=== PATIENT | male | born 1950 | race Caucasian/White ===

== ENCOUNTER 2017-05-09 07:41 | Emergency (ER) | payer MEDICARE, BC ==
[~2017-05-09] VITALS: Ht 177.8 cm; Wt 90.3 kg
[~2017-05-09 07:41] MED LIST: Artificials Tea30 ML; BUPR150ERA PO; CELE100 PO; GLIM4 PO; LEVO-T175 MCG PO; LOSA50 PO; Omeprazole20 M1 PO; SIMV40 PO; SITA100T2 PO; TRAZ50 PO; VENL75ER PO
== END 2017-05-09 09:13 | disposition home or self-care (01) ==
LOC: ER 07:41
DX: S70.02XA Contusion of left hip, initial encounter (principal); I10 Essential (primary) hypertension; E11.9 Type 2 diabetes mellitus without complications; Z88.5 Allergy status to narcotic agent; Z79.899 Other long term (current) drug therapy; Z87.891 Personal history of nicotine dependence; W01.0XXA Fall on same level from slipping, tripping and stumbling without subsequent striking against object, initial encounter
CPT/HCPCS: 73502; 99283

== ENCOUNTER 2018-09-23 11:31 | Observation (INO) | payer MEDICARE, BC ==
[~2018-09-23] VITALS: Ht 177.8 cm; Wt 97.6 kg
[~2018-09-23 11:31] MED LIST changes: -LOSA50 PO; +LOSARTAN POTAS100 MG PO
[2018-09-23] MEDS ORDERED: SITA100T2 PO (11:57)
[2018-09-23 12:10] LABS: BASOPHILS ABSOLUTE AUTO 0.06 K/mm3 (0.00-0.23); BASOPHILS PERCENT AUTO 1 % (0-2); EOSINOPHILS PERCENT AUTO 2 % (0-6); Hematocrit 42.9 % (37.0-53.0); Hemoglobin 14.5 g/dL (13.5-17.5); IMMATURE GRAN ABSOLUTE AUTO 0.05 K/mm3 (0.00-0.10); IMMATURE GRAN PERCENT AUTO 1 % (0-1); LYMPHOCYTES PERCENT AUTO 19 % (21-46); MONOCYTES ABSOLUTE AUTO 0.93 K/mm3 (0.16-1.47); MONOCYTES PERCENT AUTO 10 % (4-13); Mean Corpuscular HGB Conc 33.8 g/dL (31.5-36.5); Mean Corpuscular Volume 89 fL (80-100); Mean Platelet Volume 9.3 fL (9.1-12.4); NEUTROPHILS ABSOLUTE AUTO 6.05 K/mm3 (1.96-9.15); NEUTROPHILS PERCENT AUTO 67 % (41-73); Platelet Count 189 K/mm3 (150-400); RDW Coefficient Variation 12.8 % (11.7-14.2); RDW Standard Deviation 41.9 fL (35.1-46.3); Red Blood Cell Count 4.83 M/mm3 (4.30-5.90); White Blood Cell Count 8.99 K/mm3 (4.00-11.30)
[2018-09-23 12:25] LABS: Alanine Aminotransfer (ALT/SGP 54 U/L (12-78); Albumin, Blood 3.6 g/dL (3.4-5.0); Alk Phos 74 U/L (50-136); Anion Gap 10 mmol/L (6-16); Aspartate Aminotrans (AST/SGOT 45 U/L (12-37); Bilirubin, Total 0.4 mg/dL (0.1-1.0); Blood Urea Nitrogen 16 mg/dL (8-24); Bun/Creatinine Ratio 14.7 (12.0-20.0); CO2, Blood 22 mmol/L (21-32); Calcium, Blood 8.4 mg/dL (8.5-10.1); Chloride, Blood 106 mmol/L (98-108); Creatinine, Blood 1.09 mg/dL (0.60-1.20); Globulin, Blood 3.6 g/dL (2.2-4.0); Glomerular Filtration Rate >60 (60-); Glucose, Blood 261 mg/dL (70-99); Potassium, Blood 4.5 mmol/L (3.5-5.5); Sodium, Blood 138 mmol/L (136-145); Total Protein, Blood 7.2 g/dL (6.4-8.2)
[2018-09-23 13:19] LABS: International Normalized Ratio 0.97; Prothrombin Time Results 10.3 Sec (9.7-11.5)
--- NOTE | 2018-09-23 16:41 | NUR ---
Echocardiogram completed.
[2018-09-23] MEDS ORDERED: LO-DOSE ASPIRIN81 MG PO (16:56)
--- NOTE | 2018-09-23 17:40 | NUR ---
ADMIT NOTE- PT ADMITTED THROUGH THE ED. PER REPORT FROM ED RN AR HAS SOB, LABS WNL D-DIMER ELEVATED TROP ELEVATED, PT HAS DYSPNEA ON EXERTION. PT HAS ALLERGY TO MORPHINE AND OTHER OPIATES, CAN NOT TAKE THEM.
--- NOTE | 2018-09-23 18:42 | NUR ---
Telephone report from Heather Orourke at this time; anticipate arrival of pt to PCU 12 shortly.. Per report, the pt was given 1 ntg sublinguially, but is still having some chest pressure at rest, albeit some relief with the NTG.
--- NOTE | 2018-09-23 19:30 | NUR ---
The pt arrived from medical floor, looking cheerful and relaxed, on 1 l/min of oxygen via nasal cannula, stating that his chest was feeling pressure which he rated at 1/10. Vital signs taken, and the pt shortly after EKG stated that his chest pressure was increased to 3/10. He was given 1 sublingual nitroglycerin. He states that sitting up and taking deep breaths (for assessment of lung sounds) increased his chest pressure as well. spo2 continuous is 97% on 2 l/min of oxygen. States he does not use oxygen normally at home, only a cpap for MARCY. Bedside report was given to Anisha Bill RN.
--- NOTE | 2018-09-23 19:44 | NUR ---
CALLED DR HUSTON- AFTER SPEAKING TO THE PT HE STATED THE SOB WAS CAUSED BY PRESSURE IN HIS CHEST, THE PRESSURE IS PAINFUL, SQUEEZING THE AIR OUT OF HIM (PER PT). PT WAS ABLE TO RATE THE PAIN THE PRESSURE WAS CAUSING AT A 3/10 AND IT INCREASED WITH EXERTION TO 6/10 LOOKED MORE LIKE 8/10. PT MEDICATED WITH NITRO AND PRESSURE REDUCED SO PT COULD TAKE A DEEP BREATH WITHOUT IT FEELING FORCED. PT PLACED ON 2L O2 VIA NC. SPOKE TO SPOUSE, PT USES A HOME CPAP, GOT ORDER IN CHART FROM DR HUSTON.
--- NOTE | 2018-09-23 19:47 | NUR ---
TRANSFER NOTE- WITH PT CHEST PAIN RELIEVED WITH NITRO, ELEVATED TROP AND ELEVATED D-DIMER, HEPARIN DRIP WAS ORDERED WELL TRANSFER TO PCU. GAVE REPORT TO BACILIO DAVIS IN PCU. PT TRANSFERED TO [facility]. SPOUSE AWARE OF THE TRANSFER BUT LEFT BEFORE THE BED WAS ASSIGNED.
--- NOTE | 2018-09-23 21:22 | NUR ---
PCU NOC SHIFT - ASSUMED CARE PATIENT ARRIVED TO UNIT FROM MEDICAL FLOOR - REPORT ANGINA THAT IS PAINFUL WITH DEEP BREATHS AND PRESENTS A CONSTANT PRESSURE WITH PAIN RATING 1-3/10 - RELIEVED WITH RELAXING AND NITRO. VSS. PATIENT REMAINS IN SINUS ASHLI HEART RATE 46-52. PATIENT REPORTS THAT AFTER NITRO HE FEELS BETTER AND IS CONTENT TO RELAX IN BED WITHOUT FURTHER INTERVENTION AT THIS TIME. PATIENT REMAINS ON THE HEART MONITOR. EKG OBTAIN WHEN HE ARRIVED TO PCU. HEPARIN GTT STARTED. CARDIAC CONSULT IN PLACE AND PATIENT WILL BE KEPT NPO AFTER MIDNIGHT FOR POSSIBLE ANGIOGRAM IN AM. NO ACUTE EVENTS NOTED AT THIS TIME, PATIENT DENIES NEEDS. CALL LIGHT W/I REACH. WILL CONTINUE TO MONITOR.
--- NOTE | 2018-09-23 22:19 | NUR ---
PATIENT REPORTS CHEST PRESSURE/PAIN STATES, "IT FEELS LIKE A LARGE BOOK IS SETTING ON MY CHEST". CHECK PATIENT B/P BEFORE AND AFTER - NITRO GIVEN. PATIENT REPORTED RELIEF FROM 3/10 CHEST PAIN DOWN TO 0/10 CHEST PAIN/PRESSURE.
--- NOTE | 2018-09-24 04:00 | NUR ---
CHEST PAIN/PRESSURE RELIEVED WITH NITRO FROM 3/10 TO 0/10. PATIENT NOTED TO BE DIAPHORETIC/CLAMMY.
--- NOTE | 2018-09-24 05:50 | NUR ---
PCU NOC SHIFT SUMMARY PATIENT REMAINS ALERT AND ORIENTED X4 T/O SHIFT. CHEST PAIN REPORTS T/O SHIFT AND RELIEVED WITH NITRO. PATIENT KEPT NPO EXCEPT AM MEDICATIONS - SEE EMAR. PROVIDER STEFANO NOTIFIED OF CP RELIEVED WITH NITRO. AM EKG COMPLETED. PATIENT DENIES ANY NEEDS AT THIS TIME. RESPIRATIONS E/U ON ROOM AIR. WILL CONTINUE TO MONITOR AND GIVE REPORT TO DAYSHIFT RN.
--- NOTE | 2018-09-24 07:21 | NUR ---
The pt is lying in bed, non-distressed, calm, and pleasantly conversant. is at the bedside. He states that he is having very mild pressure ongoing in his chest, which has been relieved with NTG sublinguially during the night, with relief lasting about 1-2 hours after the administration. Heparin drip is infusing at 13 u/kg/hour, 21.6 cc/hour at this time. Lab here to draw troponin and PTT at this time.
[2018-09-24 08:11] LABS: Alanine Aminotransfer (ALT/SGP 49 U/L (12-78); Albumin, Blood 3.4 g/dL (3.4-5.0); Alk Phos 67 U/L (50-136); Anion Gap 8 mmol/L (6-16); Aspartate Aminotrans (AST/SGOT 37 U/L (12-37); Bilirubin, Total 0.5 mg/dL (0.1-1.0); Blood Urea Nitrogen 18 mg/dL (8-24); Bun/Creatinine Ratio 15.9 (12.0-20.0); CHOL/HDL RATIO 3.6; CO2, Blood 25 mmol/L (21-32); Chloride, Blood 106 mmol/L (98-108); Cholesterol 143 mg/dL (50-200); Creatinine, Blood 1.13 mg/dL (0.60-1.20); Globulin, Blood 3.3 g/dL (2.2-4.0); Glomerular Filtration Rate >60 (60-); Glucose, Blood 193 mg/dL (70-99); HDL Cholesterol 40 mg/dL (>39); LDL/HDL RATIO 1.4; Low Density Lipoprotein Chol 55 mg/dL (0-110); Potassium, Blood 4.2 mmol/L (3.5-5.5); Sodium, Blood 139 mmol/L (136-145); Total Protein, Blood 6.7 g/dL (6.4-8.2); Triglycerides 239 mg/dL (30-160); Very Low Density Lipoprot Chol 47 mg/dL (6-32)
--- NOTE | 2018-09-24 14:25 | NUR ---
The pt was brought back to PCU 12 from the [facility] by Tori Andrea, charge gang weigher, and Maryam Farrell, NIMESH. He is awake, alert, oriented, and cooperative. Asking questions about activity restrictions on his right wrist, and also what he is going to have to do going forward regarding the stents. Pt education done regarding immediate care and activity restrictions of the right wrist post arterial access, and for the next 2-3 days. It was also very strongly emphasized the importance of taking aspirin and plavix WITHOUT FAIL daily and following up with his PCP and soft metals engraver hand going forward.
--- NOTE | 2018-09-24 15:12 | NUR ---
recovery. The pt ambulated with standby assistance to the bathroom . Denied dizzyness, pain, lightheadedness. Was able to eat some soup and crackers. Oral fluid intake was strongly encouraged. He has no nausea, no pain. Right radial arterial access site remains WNL. TR band is in place, and vital signs have been stable.
--- NOTE | 2018-09-24 16:10 | NUR ---
2 cc air removed from TR BAND. Site remains completely WNL. The pt is cheerful, very talkative, and states that he does not have any more chest discomfort at rest, nor with activity. Dr. Edwards here to see the patient; states that from his standpoint the pt can be discharged home today.
--- NOTE | 2018-09-24 17:03 | NUR ---
ADDITIONAL 2 CC REMOVED FROM TR BAND. NO COMPLICATIONS. PT IS AMBULATORY TO BATHROOM WITH ASSISTING. DENIES ANY SYMPTOMS.
--- NOTE | 2018-09-24 17:38 | NUR ---
ADDITIONAL 2 CC AIR REMOVED. NO COMPLICATIONS. SCANT AMOUNT OF DRIED BLOOD NOTED, PRESUMABLY FROM PRIOR REMOVAL AND PT'S ACTIVITY OF GOING TO THE BATHROOM.
--- NOTE | 2018-09-24 18:18 | NUR ---
Call to Dr. Edwards regarding elevated blood pressure. New orders were received for amlodipine to start today and to continue tomorrow and on discharge.
--- NOTE | 2018-09-24 23:21 | NUR ---
START OF SHIFT: REPORT FROM SUSAN RIBERA. PT WAS UP IN ROOM USING RESTROOM. PT A+O, VSS. RIGHT RADIAL ACCESS SITE WITH TR BAND COMPLETELY DEFLATED AND ARM BOARD IN PLACE. TR BAND WITH SCANT AMOUNT OF OLDER DRAINAGE NOTED. WILL KEEP TR BAND AND WRIST BOARD IN PLACE T/O NOC SINCE PT GETTING UP OUT OF BED AND UP IN ROOM INDEPENDENTLY. PT WITH VERBAL UNDERSTANDING LIMITATION USING RIGHT HAND. WILL CONTINUE TO MONITOR.
--- NOTE | 2018-09-25 07:46 | NUR ---
RECEIVED REPORT AND ASSUMED CARE OF PATIENT. HE IS SITTING UP IN BED WITH BESIDE HIM, THEY ARE ANXIOUS TO DISCHARGE AND GO HOME. PLEASANT AFFECT, ABLE TO APPROPRIATELY EXPRESS NEEDS AT THIS TIME. WILL MONITOR AND PREPARE PT FOR DISCHARGE.
[2018-09-25] MEDS ORDERED: CLOP75 PO (09:33)
[2018-09-25] MEDS ORDERED: ATOR40TA PO (09:50)
--- NOTE | 2018-09-25 10:45 | NUR ---
D/C EDUCATION: COMPLETED EDUCATION FOR NEW MEDICATION PLAVIX, WENT OVER CONTRACT FOR PLAVIX AND TR BAND DISCHARGE INFORMATION SHEET. PT AND UNDERSTOOD INSTRUCTION, ASKED QUESTIONS AND INTERACTED TO DEMONSTRATED UNDERSTANDING. WRITTEN MATERIALS PROVIDED. PT DISCHARGED HOME.
== END 2018-09-25 10:41 | disposition home or self-care (01) ==
LOC: ER 11:31 → MEDS 11:32 → PCU 17:00
PROVIDERS: Emergency Medicine; Internal Medicine; ADMIT Family Medicine
DX: I25.10 Atherosclerotic heart disease of native coronary artery without angina pectoris (principal); E11.9 Type 2 diabetes mellitus without complications; I10 Essential (primary) hypertension; G47.33 Obstructive sleep apnea (adult) (pediatric); E03.9 Hypothyroidism, unspecified; E78.5 Hyperlipidemia, unspecified; Z87.891 Personal history of nicotine dependence; Z88.5 Allergy status to narcotic agent; Z79.899 Other long term (current) drug therapy; R77.8 Other specified abnormalities of plasma proteins
CPT/HCPCS: 36415; 71046; 71260; 80053; 80061; 82947; 83036; 83880; 84484; 85025; 85347; 85379; 85610; 85730; 93005; 93010; 93306; 93454; 94762; 96372; 96374; 96376; 99152; 99153; 99285-25; A9270; C1725; C1769; C1874; C1887; C1894; C9600; C9601; G0378; J0461; J1644; J1650; J2250; J3010; J7030; Q9967

== ENCOUNTER 2019-02-21 13:10 | Inpatient (IN) | payer MEDICARE, BC ==
[~2019-02-21] VITALS: Ht 177.8 cm; Wt 86.5 kg
[~2019-02-21 13:10] MED LIST changes: +ATOR40TA PO; +CLOP75 PO; +LO-DOSE ASPIRIN81 MG PO
[2019-02-21] MEDS ORDERED: VENL37.5ER PO (13:36)
[2019-02-21] MEDS ORDERED: EUTHYROX150 MCG PO (13:36)
[2019-02-21] MEDS ORDERED: LOSARTAN POTAS100 MG PO (13:36)
[2019-02-21] MEDS ORDERED: OMEPRAZOLE20 M1 PO (13:37)
[2019-02-21] MEDS ORDERED: Aspir 8181 MG PO (13:37)
[2019-02-21] MEDS ORDERED: CLOP75 PO (13:37)
[2019-02-21] MEDS ORDERED: ATOR80 PO (13:37)
[2019-02-21] MEDS ORDERED: TOUJEO MAX300 UNIT/1 SC (13:38)
[2019-02-21 13:44] LABS: BASOPHILS ABSOLUTE AUTO 0.04 K/mm3 (0.00-0.23); BASOPHILS PERCENT AUTO 1 % (0-2); EOSINOPHILS ABSOLUTE AUTO 0.14 K/mm3 (0.00-0.68); EOSINOPHILS PERCENT AUTO 2 % (0-6); Hematocrit 44.4 % (37.0-53.0); Hemoglobin 14.6 g/dL (13.5-17.5); IMMATURE GRAN ABSOLUTE AUTO 0.01 K/mm3 (0.00-0.10); IMMATURE GRAN PERCENT AUTO 0 % (0-1); LYMPHOCYTES ABSOLUTE AUTO 1.95 K/mm3 (0.84-5.20); LYMPHOCYTES PERCENT AUTO 29 % (21-46); MONOCYTES ABSOLUTE AUTO 0.86 K/mm3 (0.16-1.47); MONOCYTES PERCENT AUTO 13 % (4-13); Mean Corpuscular HGB 28.9 pg (26.0-34.0); Mean Corpuscular HGB Conc 32.9 g/dL (31.5-36.5); Mean Corpuscular Volume 88 fL (80-100); Mean Platelet Volume 8.8 fL (9.1-12.4); NEUTROPHILS ABSOLUTE AUTO 3.67 K/mm3 (1.96-9.15); NEUTROPHILS PERCENT AUTO 55 % (41-73); Platelet Count 179 K/mm3 (150-400); RDW Coefficient Variation 12.7 % (11.7-14.2); RDW Standard Deviation 40.4 fL (35.1-46.3); Red Blood Cell Count 5.06 M/mm3 (4.30-5.90); White Blood Cell Count 6.67 K/mm3 (4.00-11.30)
[2019-02-21 14:05] LABS: Alanine Aminotransfer (ALT/SGP 44 U/L (12-78); Albumin, Blood 3.6 g/dL (3.4-5.0); Albumin/Globulin Ratio 0.9 (0.8-1.8); Alk Phos 103 U/L (50-136); Anion Gap 7 mmol/L (6-16); Aspartate Aminotrans (AST/SGOT 29 U/L (12-37); Bilirubin, Total 0.5 mg/dL (0.1-1.0); Blood Urea Nitrogen 23 mg/dL (8-24); Bun/Creatinine Ratio 18.9 (12.0-20.0); CO2, Blood 24 mmol/L (21-32); Calcium, Blood 9.1 mg/dL (8.5-10.1); Chloride, Blood 108 mmol/L (98-108); Creatinine, Blood 1.22 mg/dL (0.60-1.20); Globulin, Blood 3.8 g/dL (2.2-4.0); Glomerular Filtration Rate >60 (60-); Glucose, Blood 95 mg/dL (70-99); Potassium, Blood 4.4 mmol/L (3.5-5.5); Sodium, Blood 139 mmol/L (136-145); Total Protein, Blood 7.4 g/dL (6.4-8.2); Troponin I <0.015 ng/mL (0.000-0.040)
--- NOTE | 2019-02-22 03:03 | NUR ---
SHIFT SUMMARY:\ PATIENT ARRIVED TO PCU 14 AT APPROX 1940 VIA GURNEY FROM ER. PATIENT AT BEDSIDE, PATIENT ABLE TO PIVOT TRANSFER TO BED WITH MINIMAL ASSIST. PATIENT C/O SOME DIZZY SENSATION. PATIENT ADMISSION COMPELTED AND PAIENT ORIENTED TO ROOM, CALL LIGHT AND HOSPITAL POLICIES. PATIENT SKIN IS C/D/I, PATIENT ALERT AND STATES CHEST PRESSURE IS VERY MILD AND HAS NOT WORSENED. PATIENT IS BRADYCARDIC WITH HR RANGING FROM 32 TO 50, MD AWARE. ALL OTHER VSS, CALL LIGHT WITHIN REACH, BED LOW AND LOCKED AND PATIENT VERY COMPLIANT WITH CARE.
[2019-02-22 05:32] LABS: BASOPHILS ABSOLUTE AUTO 0.06 K/mm3 (0.00-0.23); BASOPHILS PERCENT AUTO 1 % (0-2); EOSINOPHILS ABSOLUTE AUTO 0.14 K/mm3 (0.00-0.68); EOSINOPHILS PERCENT AUTO 2 % (0-6); Hematocrit 40.7 % (37.0-53.0); Hemoglobin 13.4 g/dL (13.5-17.5); IMMATURE GRAN ABSOLUTE AUTO 0.01 K/mm3 (0.00-0.10); IMMATURE GRAN PERCENT AUTO 0 % (0-1); LYMPHOCYTES ABSOLUTE AUTO 2.04 K/mm3 (0.84-5.20); LYMPHOCYTES PERCENT AUTO 34 % (21-46); MONOCYTES ABSOLUTE AUTO 0.83 K/mm3 (0.16-1.47); MONOCYTES PERCENT AUTO 14 % (4-13); Mean Corpuscular HGB 29.3 pg (26.0-34.0); Mean Corpuscular HGB Conc 32.9 g/dL (31.5-36.5); Mean Corpuscular Volume 89 fL (80-100); Mean Platelet Volume 8.8 fL (9.1-12.4); NEUTROPHILS ABSOLUTE AUTO 2.92 K/mm3 (1.96-9.15); NEUTROPHILS PERCENT AUTO 49 % (41-73); Platelet Count 156 K/mm3 (150-400); RDW Coefficient Variation 12.6 % (11.7-14.2); RDW Standard Deviation 41.5 fL (35.1-46.3); Red Blood Cell Count 4.57 M/mm3 (4.30-5.90)
[2019-02-22 05:56] LABS: Alanine Aminotransfer (ALT/SGP 35 U/L (12-78); Albumin, Blood 3.1 g/dL (3.4-5.0); Albumin/Globulin Ratio 0.9 (0.8-1.8); Alk Phos 89 U/L (50-136); Anion Gap 6 mmol/L (6-16); Aspartate Aminotrans (AST/SGOT 29 U/L (12-37); Bilirubin, Total 0.5 mg/dL (0.1-1.0); Blood Urea Nitrogen 25 mg/dL (8-24); Bun/Creatinine Ratio 21.4 (12.0-20.0); CO2, Blood 26 mmol/L (21-32); Calcium, Blood 8.5 mg/dL (8.5-10.1); Chloride, Blood 110 mmol/L (98-108); Creatinine, Blood 1.17 mg/dL (0.60-1.20); Globulin, Blood 3.3 g/dL (2.2-4.0); Glomerular Filtration Rate >60 (60-); Glucose, Blood 86 mg/dL (70-99); Potassium, Blood 4.2 mmol/L (3.5-5.5); Sodium, Blood 142 mmol/L (136-145); Total Protein, Blood 6.4 g/dL (6.4-8.2)
--- NOTE | 2019-02-22 07:51 | NUR ---
pt awake wanting to brush his teeth pt npo for angio and pacemaker placement today asking when it is sched per teletypist sharon hr 39 pt reports dizziness and some sob mild nausea and some cp
--- NOTE | 2019-02-22 09:25 | NUR ---
DR JOVEL BY TO SEE PT
--- NOTE | 2019-02-22 10:21 | NUR ---
[facility] STAFF BY TO GET PT FOR ANGIO/POSS PACER
--- NOTE | 2019-02-22 12:35 | NUR ---
pt arrived back to room pcu 14 from laboratory monitor pt has r wrist access with ballon no bruising noted pt does report h/a food given hr is 45 family at bedside
--- NOTE | 2019-02-22 13:13 | NUR ---
PO TYLENOL GIVEN FOR H/A
--- NOTE | 2019-02-22 15:35 | NUR ---
removal of small amt of air from the band no bleeding noted no pain will remove small amts over nex hr and monitor
--- NOTE | 2019-02-22 18:17 | NUR ---
removed all the air to r wrist no changes splint inplace pt visiting with family
--- NOTE | 2019-02-23 04:49 | NUR ---
SHIFT SUMMARY PT'S HEART RATE SHOWN BY TELE SINUS ASHLI IN THE 50'S-LOW 60'S. FINGER OX ON VITALS MACHINES READING APPROX 50 THROUGHOUT THE NIGHT. PT HAD NO COMPLAINTS OF PAIN. NO FEELINGS OF DIZZINESS OR LIGHTHEADEDNESS. NPO SINCE MIDNIGHT EXCEPT MORNING MEDICATIONS FOR POSSIBLE PACEMAKER PLACEMENT TODAY. PT SLEPT WELL THIS EVENING. VITAL SIGNS STABLE.
--- NOTE | 2019-02-23 06:34 | NUR ---
DR. JOVEL CALLED TO CHECK ON PT'S HEART RATE THIS EVENING. INFORMED DR. JOVEL THAT PT'S HEART RATE ON TELEMETRY HAS BEEN RANGING IN THE 50'S AND LOW 60'S THIS EVENING.
--- NOTE | 2019-02-23 11:04 | NUR ---
HE LEFT FR THE [facility]ART CENTER AT 0710 AND RETURNED AT 0945 AFTER HAVING A PACEMAKER PLACED. PRESSURE DRESSING ON LCW AREA CD&I. L ARM PUT LORELEI SPLINT. ISTRUCTIONS AVE BEEN GIVEN ON KEEPING HIS L ARM BELOW SHOULDER LEVEL AND NEAR HIS SIDE. HE UNDERSTANDS. VSS. R RADIAL SITE WNL OPEN TO AIR WITH WRIST BOARD STILL IN PLACE. HE ATE A LATE BREAKFAST. NO C/O PAIN. HIS FAMIY WAS HERE FOR ABOUT AN HOUR BUT GONE HOME. TELE SHOWS 100% PACED 63.
--- NOTE | 2019-02-23 12:35 | NUR ---
Patient gave permission for care to associate of science in nursing on 02/23/19
--- NOTE | 2019-02-23 15:49 | NUR ---
L ARM SLING IN PLACE. HIS WIF IS AT THE BEDSIDE. HE HAS NO COMPLAINTS. IV ANCEF INFUSING. NO SIGNS OF HEMATOMA OR OUTWARD BLEEDING . PRESSURE DRESSING INTACT. HE HAS VOIDED 2 OR 3 TIMES SINCE RETURN FROM HEART CENTER. VSS.
--- NOTE | 2019-02-23 16:51 | NUR ---
PT GAVE PRODUCT SUPPORT ANALYST PERMISSION TO PROVIDE CARE 02/23/19.
--- NOTE | 2019-02-23 17:00 | NUR ---
HE IS RESTING COMFORTABLY WITH HIS L ARM SLING ON. LCW PACEMAKER PRESSURE DRESSING CD&I. APICAL REGULAR. TELE PACED 58-63 BTS/MIN. AT BEDSIDE. HE HAS VOIDED SMALL AMTS 2 OR 3 TIMES SINCE RETURN FROM HEART CENTER. R RADIAL SITE FROM YESTERDAY'S ANGIOGRAM WNL. WRIST BOARD IN P0LACE. CBG'S WNL. NO LABS TODAY. TYLENOL GIVEN X1 FOR A H/A. IT WAS EFFECTIVE.
--- NOTE | 2019-02-24 05:48 | NUR ---
SHIFT SUMMARY: PT A&O X4. BP ELEVATED T/O SHIFT. HR STABLE IN 60-70'S. DENIES CP. DENIES SOB. PRESSURE DRESSING CDI TO LEFT CHEST WALL. NO S/SX OF BLEEDING NOTED. LUE IN SLING. ARM BOARD REMAINS IN PLACE TO R FOREARM FOR PREVIOUS PCI. ABX INFUSING PER EMAR. CBG STABLE AT 106. PLAN FOR POSSIBLE D/C HOME TODAY.
[2019-02-24] MEDS ORDERED: METO25ER PO (11:35)
[2019-02-24] MEDS ORDERED: TICA90TA PO (11:36)
--- NOTE | 2019-02-24 12:22 | NUR ---
DISCHARGE NOTE PT ALERT AND ORIENTED. VS STABLE. WOUND TO LEFT CHEST WITH DRESSING C/D/I. DR. JOVEL STATES OK FOR DISCHARGE. PT PROVIDED DISCHARGE INSTRUCTIONS. NEW MEDICATIONS EDUCATION PROVIDED. ALL QUESTIONS ANSWERED. PT TAKEN OUT BY WHEELCHAIR.
== END 2019-02-24 12:13 | disposition home or self-care (01) | DRG 243 ==
LOC: ER 13:10 → PCU 17:21
PROVIDERS: Physician Assistant; ADMIT Internal Medicine
PROC: 027034Z Dilation of Coronary Artery, One Artery with Drug-eluting Intraluminal Device, Percutaneous Approach (ICD-10-PCS; 2019-02-22)
PROC: 02703ZZ Dilation of Coronary Artery, One Artery, Percutaneous Approach (ICD-10-PCS; 2019-02-22)
PROC: B240ZZ3 Ultrasonography of Single Coronary Artery, Intravascular (ICD-10-PCS; 2019-02-22)
PROC: B2111ZZ Fluoroscopy of Multiple Coronary Arteries using Low Osmolar Contrast (ICD-10-PCS; 2019-02-22)
PROC: 0JH606Z Insertion of Pacemaker, Dual Chamber into Chest Subcutaneous Tissue and Fascia, Open Approach (ICD-10-PCS; principal; 2019-02-23)
PROC: 02H63JZ Insertion of Pacemaker Lead into Right Atrium, Percutaneous Approach (ICD-10-PCS; 2019-02-23)
PROC: 02HK3JZ Insertion of Pacemaker Lead into Right Ventricle, Percutaneous Approach (ICD-10-PCS; 2019-02-23)
DX: I25.110 Atherosclerotic heart disease of native coronary artery with unstable angina pectoris (principal); I47.1 Supraventricular tachycardia; I49.5 Sick sinus syndrome; Z79.4 Long term (current) use of insulin; E11.9 Type 2 diabetes mellitus without complications; F43.10 Post-traumatic stress disorder, unspecified; E78.5 Hyperlipidemia, unspecified; E03.9 Hypothyroidism, unspecified; Z79.82 Long term (current) use of aspirin; G47.33 Obstructive sleep apnea (adult) (pediatric); Z87.891 Personal history of nicotine dependence; Z96.643 Presence of artificial hip joint, bilateral; Z96.651 Presence of right artificial knee joint
CPT/HCPCS: 33208; 33228; 36415; 71045; 71046; 76937; 80053; 80061; 82947; 83880; 84443; 84484; 85025; 85347; 92978; 93005; 93010; 93454; 96372; 99152; 99153; 99285-25; A9270; C1725; C1753; C1769; C1785; C1874; C1887; C1894; C1898; C9600; G0103; J0690; J1644; J2250; J3010; J7030; J7040; J7050; Q9967